=== PATIENT | female | born 1995 | race Caucasian/White ===

== ENCOUNTER 2021-05-19 08:50 | Emergency (ER) | payer OTHER ==
[~2021-05-19] VITALS: Ht 162.6 cm; Wt 63.5 kg
[~2021-05-19 08:50] MED LIST: AMOX1TAB12 PO; CLARITIN-D 121 EACH PO; TUSSI-PRES LIQ120 ML PO
[2021-05-19] MEDS ORDERED: PERCOCET 5-3251 EACH PO (13:24)
[2021-05-19] MEDS ORDERED: ZITHROMAX500 MG PO (13:24)
[2021-05-19] MEDS ORDERED: KETO10TA2 PO (13:24)
== END 2021-05-19 16:05 | disposition home or self-care (01) ==
LOC: ER 08:50
DX: R10.12 Left upper quadrant pain (principal); R10.32 Left lower quadrant pain

== ENCOUNTER 2021-05-21 13:48 | Emergency (ER) | payer OTHER ==
[~2021-05-21] VITALS: Ht 162.6 cm; Wt 63.5 kg
[~2021-05-21 13:48] MED LIST changes: +KETO10TA2 PO; +PERCOCET 5-3251 EACH PO; +ZITHROMAX500 MG PO
[2021-05-21] MEDS ORDERED: PERCOCET 5-3251 EACH PO (16:18)
== END 2021-05-21 19:13 | disposition home or self-care (01) ==
LOC: ER 13:48
DX: N20.0 Calculus of kidney (principal)

== ENCOUNTER 2021-07-16 09:00 | Outpatient (CLI) | payer OTHER | END 2021-07-16 09:30 | disposition home or self-care (01) | LOC: PPH VACUNA 09:00 | PROVIDERS: ATTEND Emergency Medicine Pediatric Emergency Medicine | DX: Z23 Encounter for immunization (principal) ==

== ENCOUNTER 2023-07-30 23:06 | Emergency (ER) | payer OTHER ==
[~2023-07-30] VITALS: Ht 162.6 cm; Wt 70.3 kg
[2023-07-31 02:24] LABS: ALBUMIN 4.1 gm/dL (3.4-5.0); ALKALINE PHOSPHATASE 62 U/L (50-136); ALT/SGPT 22 U/L (12-78); AMYLASE 67 U/L (25-115); ANION GAP 12 (10.0-20.0); AST/SGOT 26 U/L (15-37); BILIRUBIN TOTAL 0.36 mg/dL (0.3-1.2); BLOOD UREA NITROGEN 12 mg/dL (7-18); BUN CREA RATIO 12 (7.0-25.0); CALCIUM 9.3 mg/dL (8.5-10.1); CARBON DIOXIDE 24 mEq/L (21-32); CHLORIDE 107 mmol/L (98-107); CREATININE SERUM 1.02 mg/dL (0.55-1.02); GLOBULINA 4.2 G/DL (2.4-3.5); GLUCOSE FASTING 150 mg/dL (65-100); LIPASE 39 U/L (13-75); OSMOLALITY SERUM 280 MOSM/KG (275-295); POTASSIUM 3.88 mEq/L (3.5-5.1); SODIUM 139 mmol/L (136-145); TOTAL PROTEIN 8.3 gm/dL (6.4-8.2)
[2023-07-31 03:09] LABS: HCG QUANTITATIVE < 1 mUI/mL (1-3)
[2023-07-31 03:14] LABS: HEMATOCRIT 34.8 % (36.0-45.00); HEMOGLOBIN 11.6 g/dL (12.0-15.00); MEAN CELL VOLUME 79.9 fL (80.00-100.00); MEAN CORPUSCULAR HEMOGLOBIN 26.7 pg (27.00-32.0); MEAN CORPUSCULAR HGB CONC 33.4 g/dl (32.0-36.0); PLATELET COUNT 397 K/uL (150-450); RED BLOOD COUNT 4.35 M/uL (4.00-6.00); RED CELL DISTRIBUTION WIDTH 15.4 % (11.5-14.5)
[2023-07-31 03:14] LABS: PH,URINE 5.5 (5.0-8.0); URINE APPEARANCE Cloudy; URINE BILIRRUBIN Moderate (NEGATIVE); URINE BLOOD NHT; URINE COLOR Orange; URINE GLUCOSE Negative (NEGATIVE); URINE LEUKOCYTE Moderate; URINE NITRATE Positive; URINE PROTEIN 30 (NEGATIVE)
[2023-07-31 03:18] LABS: URINE BACTERIA 718.1 uL (0.0-1933); URINE EPITHELIAL CELLS 100.1 uL (0.0-38.8); URINE RBC 36.7 uL (0.0-20.8); URINE WBC 3.7 uL (0.0-23.2)
== END 2023-07-31 10:58 | disposition home or self-care (01) ==
LOC: ER 23:06
PROVIDERS: General Practice
DX: N13.2 Hydronephrosis with renal and ureteral calculous obstruction (principal); N39.0 Urinary tract infection, site not specified